=== PATIENT | female | born 1965 | race Caucasian/White ===

== ENCOUNTER 2020-02-20 14:42 | Observation (INO) | payer OTHER, SELFPAY ==
[2020-02-20] VITALS (7 sets, daily range): BP systolic 102–146; BP diastolic 56–93; PULSE 88–115; RESP 16–18; TEMP 36.8–37.1; O2SAT 96–100; BMI 33.7
--- NOTE | ~2020-02-20 | CT_ITS ---
EXAMINATION: CT abdomen pelvis w con EXAM DATE: 02/20/2020 15:59 INDICATION: Medial abdominal pain last night, vomiting and diarrhea. TECHNIQUE: Spiral CT of the abdomen and pelvis was performed following intravenous injection of 100 m L Omnipaque 350. Axial, coronal and sagittal images were reviewed. The dose-length product (DLP) fo r this examination was 853.94 mGy-cm. The exposure was tailored according to patient size (auto mA e xposure control), and iterative reconstruction (ASIR) was used as additional dose reduction technique . Comparison is made to prior examination from 01/10/2016. FINDINGS: The liver, spleen, adrenal glands and pancreas are unremarkable. There are cholecystectomy clips. Portal and splenic veins are patent. Kidneys enhance symmetrically. There is no hydronephr osis. The bladder is unremarkable. There is no retroperitoneal or pelvic lymphadenopathy. Appendix measuring 8 mm in maximal diameter, is contiguous to the right ovary which is normal in size . There is no appendicolith, and appendix does not appear fluid-filled, but there is fat stranding ad jacent to its tip, and also both ovaries, which is nonspecific. Inflammation could be from a recently ruptured cyst, but can't exclude acute appendicitis. Patient has had hysterectomy. There is a left o varian dominant follicle or hemorrhagic cyst measuring 3 cm. The stomach and small bowel are unremar kable. There is expected amount of colonic stool. No free intraperitoneal gas. The heart is norm al in size. There are no pericardial or pleural effusions. The lung bases are unremarkable. scler osis in L1 and L2 probably related to the advanced disc disease at that level. IMPRESSION: Appendix contiguous to the right ovary, with some adjacent nonspecific fat stranding and also adjacent to the left ovary. Inflammation could be from a recently ruptured cyst, but can't exclu de acute uncomplicated appendicitis. Reviewed, dictated and finalized at location A. IMPRESSION: Appendix contiguous to the right ovary, with some adjacent nonspeci fic fat stranding and also adjacent to the left ovary. Inflammation could be fr om a recently ruptured cyst, but can't exclude acute uncomplicated appendicitis .
--- NOTE | 2020-02-20 15:02 | ED.ABDPAIN ---
HPI - Abdominal Pain General Chief Complaint: Abdominal Pain Stated Complaint: vomiting/diarrhea/abd pain Time Seen by Provider: 02/20/20 14:50 Source: patient and RN notes reviewed Mode of arrival: ambulatory Limitations: no limitations History of Present Illness HPI narrative: Pt is a 54 y/o female who presents to the ED with c/o constant epigastric pain starting last night. She notes that she ate pizza around 7 PM yesterday evening, and states that she developed nausea and a sharp pain in her epigastric region shortly afterwards. Pt notes that she then began vomiting. She states that she has also had several episodes of diarrhea, noting that her stools have been mostly watery. Pt states that her pain is aggravated with movement, and currently rates her pain at 8/10. She notes that she took Tylenol for her pain, and states that the medication has provided her some relief. Pt reports chills accompanying her pain, but denies any fever. She notes that she has been in contact with her son who has recently travelled to [place] and [place]. Pt states that her son is currently asymptomatic. MD elicited complaint: abdominal pain Onset (ago): day(s) (1) Pain Consistency: constant Location: epigastric Pain scale (0-10): 8 Quality: sharp Exacerbating factors: movement Relieving factors: medication (Tylenol) Associated symptoms: nausea, vomiting, diarrhea and chills Related Data Home Medications Medication Instructions Recorded Confirmed lisinopril 02/20/20 ranitidine HCl 02/20/20 Allergies Allergy/AdvReac Type Severity Reaction Status Date / Time amoxicillin Allergy Unknown Unknown Verified 02/20/20 14:54 chlorpheniramine Allergy Unknown Unknown Verified 02/20/20 14:54 pseudoephedrine Allergy Unknown Unknown Verified 02/20/20 14:54 Review of Systems Review of Systems: All systems reviewed & are unremarkable except as noted in HPI and below Constitutional: Constitutional: Reports chills and Denies fever(s) Gastrointestinal: Gastrointestinal: Reports abdominal pain (epigastric pain), Reports diarrhea, Reports nausea and Reports vomiting PMFSH Past Medical History Medical History Hiatal hernia HTN (hypertension) Surgical History Surgical History History of hysterectomy History of open heart surgery as child Hx of cholecystectomy Family History Family History (Updated 06/20/16 @ 23:21 by DOCTOR UNKNOWN) Mother Hypertension Family history of diabetes mellitus in first degree relative Father Patient's father is in good health Sibling Patient's sister is in good health Patient's brother is in good health Social History Social History Smoking status: Former smoker Alcohol intake: current Gender identity (if verbalized by the patient): Female Exam Narrative: Exam Narrative: General appearance: Well-developed, well-nourished Skin: Normal color Head: Normocephalic, nontraumatic Eyes: Clear conjunctiva ENT: Oropharynx normal, ears normal, nose normal Neck: Supple, nontender Chest and respiratory: Airway patent, no respiratory distress, no accessory muscle use Heart: Regular rate/rhythm Abdomen: Soft and diffuse tenderness mainly right lower quadrant, no guarding or rebound, quiet bowel sounds Vascular: Normal peripheral pulses, normal capillary refill. Musculoskeletal: Normal range of motion, nontender back Neurologic: Alert and oriented ?3, ROUTE JUMPER is normal as tested, no gross motor deficit Course Course Emergency Course: Improving Consultations Consultation #1: Discussed case with general surgeon, Dr. Barriga. Accep
[2020-02-20 15:03] LABS: Basophils Percent Auto 0.2 % (0.2-1.2); Hematocrit 42.7 % (37.0-47.0); Hemoglobin 14.1 g/dL (12.0-15.0); Immature Granulocyte Percent A 0.5 % (0-0.5); Lymphocytes Absolute Auto 2.13 K/mm3 (0.9-3.2); Mean Corpuscular Hemoglobin 31.2 pg (26-34); Mean Corpuscular Volume 94.5 fl (80-100); Mean Platelet Volume 10.7 fl (7.4-10.4); Monocytes Absolute Auto 0.7 K/mm3 (0.1-0.6); Monocytes Percent Auto 3.5 % (2.6-8.5); Neutrophils Absolute Auto 16.4 K/mm3 (1.3-6.7); Neutrophils Percent Auto 84.8 % (45.5-73.1); Platelet Count Result 245 k/mm3 (150-375); Red Blood Count 4.52 M/mm3 (4.2-5.4); Red Cell Distribution Width 12.5 % (11.5-14.5); White Blood Count 19.4 K/mm3 (4.5-10.0)
[2020-02-20 15:21] LABS: Alanine Aminotransferase 21 U/L (4-35); Albumin Level 4.6 g/dL (3.5-5.1); Alkaline Phosphatase 59 U/L (38-126); Aspartate Amino Transferase 26 U/L (14-36); Bilirubin,Total 2.8 mg/dL (0.2-1.3); Blood Urea Nitrogen 8 mg/dL (7-17); Calcium 9.5 mg/dL (8.4-10.2); Carbon Dioxide 23 mmol/L (22-30); Chloride 103 mmol/L (98-107); Estimated CRCL calculation 87 ml/min; Estimated Glomerular Filt Rate > 60; Glucose 127 mg/dL (65-105); Lipase 36 U/L (23-300); Potassium 3.8 mmol/L (3.4-5.0); Sodium 134 mmol/L (137-145)
[2020-02-20] MEDS: ONDANSETRON INJ 4 MG/2 ML VIAL IV PUSH ×2 (16:09→20:53)
[2020-02-20] MEDS: HYDROMORPHONE HCL 1 MG/ML INJ 0.5 MG IV PUSH (16:09)
[2020-02-20] MEDS: SODIUM CHLORIDE 0.9% IV 1,000 ML 999 ML IV CONT (16:10)
[2020-02-20] MEDS: metroNIDAZOLE 500 MG/ISO 100ML 500 MG/100 ML BAG 100 MG IVPB (16:50)
[2020-02-20] MEDS: LACTATED RINGERS 1,000 ML 125 ML IV CONT (20:12)
[2020-02-20 20:32] LABS: Basophils Percent Auto 0.2 % (0.2-1.2); Hematocrit 36.7 % (37.0-47.0); Hemoglobin 11.9 g/dL (12.0-15.0); Immature Granulocyte Absolute 0.05 K/mm3 (0.00-0.031); Immature Granulocyte Percent A 0.4 % (0-0.5); Lymphocytes Absolute Auto 1.73 K/mm3 (0.9-3.2); Lymphocytes Percent Auto 12.9 % (18.3-44.2); Mean Corpuscular HGB Conc 32.4 g/dl (32-36); Mean Corpuscular Hemoglobin 31.2 pg (26-34); Mean Corpuscular Volume 96.1 fl (80-100); Mean Platelet Volume 10.8 fl (7.4-10.4); Monocytes Absolute Auto 0.5 K/mm3 (0.1-0.6); Monocytes Percent Auto 3.6 % (2.6-8.5); Neutrophils Absolute Auto 11.1 K/mm3 (1.3-6.7); Neutrophils Percent Auto 82.9 % (45.5-73.1); Platelet Count Result 222 k/mm3 (150-375); Red Blood Count 3.82 M/mm3 (4.2-5.4); Red Cell Distribution Width 12.8 % (11.5-14.5); White Blood Count 13.4 K/mm3 (4.5-10.0)
[2020-02-20] MEDS: KETOROLAC 15 MG/ML VIAL (*BKC) IV PUSH (20:51)
--- NOTE | 2020-02-20 21:00 | ADMGEN ---
This patient, Archana Pérez, was admitted to [facility] Surg Room 315-01. Patient/family oriented to hospital policies and general routines including ID bracelet, bed and alarms, visiting hours, pain management, procedures, bathroom and other care routines, personal items, smoking policy, room service/diet, and visiting hours. Valuables list has been completed. Information on how to activate the Rapid Response Team has been discussed. Patient/Family are encouraged to report perceived risks to care and to ask questions if they do not understand what they are told or what they should do.
--- NOTE | 2020-02-20 22:36 | PM.IMHP ---
H&P: HPI History of Present Illness Chief complaint: Uncomplicated appendicitis/ruptured ovarian cyst Narrative: Archana Pérez is a 54 year old female who has had a past history of having ovarian cyst. She has since had a hysterectomy and has both of her ovaries at this time. The patient stated that she ate some pizza last night became ill. She had diffuse abdominal pain and nausea vomiting. The patient stated that her bowels have not moved because she has not eaten anything since then. And she has been vomiting. The patient did not have a fever chills. She has not had any sick contacts. She has not traveled out of the country. 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 She has no cough. CT of the abdomen was read as appendix contiguous to the right ovary, with some adjacent nonspecific fat stranding and also adjacent to the left ovary. Inflammation could be from recently ruptured cysts, but cannot exclude acute uncomplicated appendicitis. Dr. Barriga from surgery team was notified per ED provider and surgery team agreed to consult but requested that the hospitalist team admit the patient. I also requested a OBGYN be notified. ED provider noted that he did consult OBGYN. Patient was started on Flagyl and Levaquin as and given Dilaudid for discomfort. She was made NPO and given IV fluids. Date of service 02/20/2020 Review of Systems Review of Systems: All systems reviewed & are unremarkable except as noted in HPI and below Constitutional: Constitutional: Reports as per HPI and Reports no additional constitutional complaints Eyes: Eyes: Reports as per HPI and Reports no additional eye complaints ENT: Reports system reviewed and no additional complaints, except as documented and Reports Normal hearing present Cardiovascular: Cardiovascular: Reports no additional cardiovascular complaints Respiratory: Respiratory: Reports no additional respiratory complaints and Reports no additional respiratory complaints Gastrointestinal: Gastrointestinal: Reports as per HPI and Reports no additional gastrointestinal complaints Musculoskeletal: Musculoskeletal: Reports no additional musculoskeletal complaints Integumentary/Breasts: Skin/Breast: Reports system reviewed and no additional complaints, except as docu and Reports as per HPI Neurologic: Reports system reviewed and no additional complaints, except as documented, Reports as per HPI and Reports Normal hearing present Psychiatric: Psychiatric: Reports no additional psychiatric complaints and Reports as per HPI Endocrine: Endocrine: Reports no additional endocrine complaints Hematologic/Lymphatic: Hematologic/Lymphatic: Reports no additional hematologic/lymphatic complaints Allergic/Immunologic: Allergic/Immunologic: Reports no additional allergic/immunologic complaints [facility] Past Medical History Medical History (Updated 02/20/20 @ 22:54 by Connie Kate NP) Chronic GERD Hiatal hernia HTN (hypertension) Surgical History Surgical History (Updated 02/20/20 @ 22:46 by Connie Kate NP) H/O sinus surgery History of hysterectomy History of open heart surgery as child History of tonsillectomy Hx of cholecystectomy Family History Family History (Updated 02/20/20 @ 22:47 by Connie Kate NP) Mother Hypertension Family history of diabetes mellitus in first degree relative Father Patient's father is in good health Patient had seen her father and several years the last time she saw him he was in good health. Sibling Patient's sister is in good health Patient's brother is in good health Social History Social History (Updated 02/20/20 @ 22:48 by Connie Kate NP) Social History: The patient is and has 2 children. She is a hairdresser. She desires to have her oldest son likes she also works doing [employer] with [employer] and does here at the [facility] Smoking packs per day: 1 Smoki
[2020-02-21] MEDS: metroNIDAZOLE 500 MG/ISO 100ML 500 MG/100 ML BAG 100 MG IVPB ×4 (00:07→21:28)
[2020-02-21 02:00] VITALS: BP 99/60; PULSE 86; RESP 18; TEMP 36.8; O2SAT 97
[2020-02-21] MEDS: LACTATED RINGERS 1,000 ML 125 ML IV CONT ×2 (05:20→14:06)
[2020-02-21 05:58] LABS: Basophils Percent Auto 0.2 % (0.2-1.2); Eosinophils Percent Auto 0.1 % (0-4.4); Hematocrit 32.7 % (37.0-47.0); Immature Granulocyte Absolute 0.05 K/mm3 (0.00-0.031); Immature Granulocyte Percent A 0.5 % (0-0.5); Lymphocytes Absolute Auto 1.48 K/mm3 (0.9-3.2); Lymphocytes Percent Auto 16.1 % (18.3-44.2); Mean Corpuscular HGB Conc 33.6 g/dl (32-36); Mean Corpuscular Hemoglobin 31.7 pg (26-34); Mean Corpuscular Volume 94.2 fl (80-100); Mean Platelet Volume 10.3 fl (7.4-10.4); Monocytes Absolute Auto 0.3 K/mm3 (0.1-0.6); Monocytes Percent Auto 3.3 % (2.6-8.5); Neutrophils Absolute Auto 7.4 K/mm3 (1.3-6.7); Neutrophils Percent Auto 79.8 % (45.5-73.1); Platelet Count Result 165 k/mm3 (150-375); Red Blood Count 3.47 M/mm3 (4.2-5.4); Red Cell Distribution Width 12.9 % (11.5-14.5); White Blood Count 9.2 K/mm3 (4.5-10.0)
[2020-02-21 06:00] VITALS: BP 101/63; PULSE 95; RESP 18; TEMP 37.9; O2SAT 95
[2020-02-21 06:18] LABS: Alanine Aminotransferase 17 U/L (4-35); Albumin Level 3.2 g/dL (3.5-5.1); Alkaline Phosphatase 51 U/L (38-126); Aspartate Amino Transferase 18 U/L (14-36); Blood Urea Nitrogen 8 mg/dL (7-17); Calcium 8.4 mg/dL (8.4-10.2); Carbon Dioxide 25 mmol/L (22-30); Chloride 105 mmol/L (98-107); Estimated CRCL calculation 77 ml/min; Estimated Glomerular Filt Rate > 60; Glucose 101 mg/dL (65-105); Potassium 3.7 mmol/L (3.4-5.0); Sodium 137 mmol/L (137-145)
[2020-02-21] MEDS: PANTOPRAZOLE SODIUM IV 40 MG VIAL IV PUSH ×2 (08:33→21:25)
--- NOTE | 2020-02-21 09:49 | PM.CNGS ---
Assessment and Plan Assessment and plan (1) Acute appendicitis: Onset Date: ~02/20/20 Qualifiers: Acute appendicitis type: unspecified acute appendicitis type Qualified Code(s): K35.80 - Unspecified acute appendicitis Code(s): K35.80 - Unspecified acute appendicitis Status: Acute Assessment and Plan: Patient improved on IV antibiotics. There are no fecaliths. Therefore, I have discussed with her the risks, benefits, and possible complications of treatment of possible but equivocal appendicitis with IV antibiotics followed by a 10 day course of oral antibiotics. At this time we are not planning surgical intervention. She knows that about 20% of people that embark on this plan occasionally need appendectomy. I think she is a low chance for this in view of the mild inflammation that was seen on the CT yesterday. We will start a diet on her since she is hungry will also send some stool studies since she has been having loose stools that are almost uncontrollable ever since she ate the pizza 2 nights ago. (2) HTN (hypertension): Onset Date: Unknown Code(s): I10 - Essential (primary) hypertension Status: Chronic Assessment and Plan: Appreciate hospitalist help patient could start oral lisinopril back again now. (3) Chronic GERD: Onset Date: Unknown Code(s): K21.9 - Gastro-esophageal reflux disease without esophagitis Status: Chronic Assessment and Plan: Continue IV transition to p.o. medications to resume her usual treatment (4) Ovarian cyst rupture: Onset Date: Unknown Code(s): N83.209 - Unspecified ovarian cyst, unspecified side Status: Acute Assessment and Plan: Lower abdominal pain could have been a result of a cyst that ruptured. Please see CT report. Will await OB Gyne evaluation. If this is the case probably her pain will gradually resolve. If it comes to a position where surgery will be needed from either the OB Gyne or general surgery aspect we will try to coordinate such that we could evaluate both the appendix and her ovaries during surgery. Additional Plan Continue Levaquin and Flagyl for antibiotic therapy. Repeat CBC liver function tests tomorrow morning (bilirubin was high for some reason). If doing well consider home tomorrow to complete a 10 day course of antibiotics and I will follow her up as an outpatient. History of Present Illness Consult details Consult date: 02/21/20 Reason for consult: abdominal pain Requesting physician: Connie Kate NP Narrative: Archana Pérez is a 54 year old female who has had a past history of having ovarian cysts on and off with Lt lower quadrant pain. She has had a vaginal hysterectomy about 18 ears ago, and still has both of her ovaries at this time. The patient stated that she ate some pizza Sun night and then became ill. She had diffuse abdominal pain and nausea vomiting. The patient stated that her bowels have not moved because she has not eaten anything since then. And she has been vomiting. The patient did not have a fever or chills. She has not had any sick contacts. The particular pizza that she ate only she aided no one else. She has not traveled out of the country. 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 She has no cough. CT of the abdomen was read as appendix contiguous to the right ovary, with some adjacent nonspecific fat stranding and also adjacent to the left ovary. Inflammation could be from recently ruptured cysts, but cannot exclude acute uncomplicated appendicitis. The surgery team was notified per ED provider and we agreed to consult but requested that the hospitalist team admit the patient due to her HTN. Today the patient feels somewhat better. Today her abdominal pain is mostly lower abdominal pain. Her nausea and vomiting have resolved. She does feel hungry. Review of Systems Constitutional: Dayo
[2020-02-21 14:00] VITALS: BP 103/61; PULSE 101; RESP 16; TEMP 36.7; O2SAT 95
[2020-02-21] MEDS: KETOROLAC 15 MG/ML VIAL (*BKC) IV PUSH ×3 (14:06→23:38)
--- NOTE | 2020-02-21 15:07 | PM.IMPN ---
Progress Note: A&P Assessment and Plan (1) Acute appendicitis: Onset Date: ~02/20/20 Qualifiers: Acute appendicitis type: unspecified acute appendicitis type Qualified Code(s): K35.80 - Unspecified acute appendicitis Code(s): K35.80 - Unspecified acute appendicitis Status: Acute Assessment and Plan: Patient is made NPO at this time. Patient was placed on Flagyl and Levaquin. Surgery has been consulted. Continue with IV fluids pain medication 02/21/20 15:07 patient is a 54-year-old female with history of ovarian cyst rupture in the past presented emergency department with complaint of epigastric pain nausea feverish and chills, patient had a CT scan of the abdomen there was a concerned that patient may have appendicitis as her white counts were elevated, patient was started on Flagyl and Levaquin, this morning patient states pain is much better denies any nausea or vomiting fever or chills her white counts are trending down, patient was seen by surgery team does not suspect appendicitis and started the patient on clear liquid and advanced as tolerated, will continue to monitor with same regimen reassess tomorrow and further recommendation to follow (2) Ovarian cyst rupture: Onset Date: Unknown Code(s): N83.209 - Unspecified ovarian cyst, unspecified side Status: Acute Assessment and Plan: I did order the patient Toradol and Dilaudid. Patient has abdominal tenderness all over. (3) Chronic GERD: Onset Date: Unknown Code(s): K21.9 - Gastro-esophageal reflux disease without esophagitis Status: Chronic Assessment and Plan: Continue with the PPI. (4) HTN (hypertension): Onset Date: Unknown Code(s): I10 - Essential (primary) hypertension Status: Chronic Assessment and Plan: Patient is NPO at this time will do p.r.n. hydralazine. Her lisinopril is on hold. Subjective Date/time seen: Patient is made NPO at this time. Patient was placed on Flagyl and Levaquin. Surgery has been consulted. Continue with IV fluids pain medication 02/21/20 15:07 patient is a 54-year-old female with history of ovarian cyst rupture in the past presented emergency department with complaint of epigastric pain nausea feverish and chills, patient had a CT scan of the abdomen there was a concerned that patient may have appendicitis as her white counts were elevated, patient was started on Flagyl and Levaquin, this morning patient states pain is much better denies any nausea or vomiting fever or chills her white counts are trending down, patient was seen by surgery team does not suspect appendicitis and started the patient on clear liquid and advanced as tolerated, will continue to monitor with same regimen reassess tomorrow and further recommendation to follow Review of Systems Review of Systems: All systems reviewed & are unremarkable except as noted in HPI and below Exam Narrative: Exam Narrative: Moderately obese Const: General: comfortable and no acute distress HENMT: General nose exam: Normal nares present Mouth: Yes moist mucous membranes Eyes: General: appearance normal, both eyes and all related structures Sclera: sclerae normal Neck: Neck: supple Resp: Effort & Inspection: normal respiratory effort Auscultation: clear to auscultation bilaterally Cardio: Rate: regular rate Rhythm: regular rhythm GI: Auscultation: normal bowel sounds Skin: General skin exam: normal color and no rashes or lesions noted Neuro: Speech: normal speech Sensory Exam: normal sensation Extrem: General: normal to inspection Psych: Mental Status: mental status grossly normal Affect: normal affect Objective Data Vital Signs Vital Signs: Vital Signs - 24 hr 02/20/20 16:50 02/20/20 18:13 02/20/20 18:57 Temperature 98.2 F Pulse Rate 100 88 92 Respiratory Rate 18 16 18 Blood Pressure 142/74 H 142/78 H 106/67 Pulse Oximetry 100 97 97
[2020-02-21] MEDS: levoFLOXacin 500 MG/D5W 100 ML 500 MG/100 ML BAG 100 MG IVPB (18:36)
[2020-02-21 22:00] VITALS: BP 114/67; PULSE 86; RESP 18; TEMP 36.6; O2SAT 98
[2020-02-22] MEDS: LACTATED RINGERS 1,000 ML 125 ML IV CONT ×2 (01:22→11:29)
[2020-02-22] MEDS: KETOROLAC 15 MG/ML VIAL (*BKC) IV PUSH ×3 (05:57→17:25)
[2020-02-22] MEDS: metroNIDAZOLE 500 MG/ISO 100ML 500 MG/100 ML BAG 100 MG IVPB ×3 (05:57→21:57)
[2020-02-22 06:00] VITALS: BP 123/66; PULSE 95; RESP 18; TEMP 36.8; O2SAT 96
[2020-02-22 06:15] LABS: Hematocrit 33.2 % (37.0-47.0); Hemoglobin 10.4 g/dL (12.0-15.0); Mean Corpuscular HGB Conc 31.3 g/dl (32-36); Mean Corpuscular Volume 98.8 fl (80-100); Mean Platelet Volume 11.6 fl (7.4-10.4); Platelet Count Result 155 k/mm3 (150-375); Red Blood Count 3.36 M/mm3 (4.2-5.4); Red Cell Distribution Width 12.9 % (11.5-14.5); White Blood Count 7.8 K/mm3 (4.5-10.0)
[2020-02-22 07:23] LABS: Alanine Aminotransferase 17 U/L (4-35); Albumin Level 3.2 g/dL (3.5-5.1); Alkaline Phosphatase 64 U/L (38-126); Aspartate Amino Transferase 19 U/L (14-36); Bilirubin,Total 1.8 mg/dL (0.2-1.3); Blood Urea Nitrogen 7 mg/dL (7-17); Calcium 8.5 mg/dL (8.4-10.2); Carbon Dioxide 26 mmol/L (22-30); Chloride 107 mmol/L (98-107); Estimated CRCL calculation 77 ml/min; Estimated Glomerular Filt Rate > 60; Glucose 121 mg/dL (65-105); Potassium 3.8 mmol/L (3.4-5.0); Sodium 136 mmol/L (137-145)
--- NOTE | 2020-02-22 07:43 | PM.PNGS ---
Progress Note: A&P Assessment and Plan (1) Ovarian cyst rupture: Onset Date: Unknown Code(s): N83.209 - Unspecified ovarian cyst, unspecified side Status: Acute Assessment and Plan: View of decreasing H&H I suspect a ruptured hemorrhagic cyst more than appendicitis. Also, white count has con down stay down with antibiotics. Will repeat H&H in 12 hours to see if this continues to go down or stabilizes. (2) Acute appendicitis: Onset Date: ~02/20/20 Qualifiers: Acute appendicitis type: unspecified acute appendicitis type Qualified Code(s): K35.80 - Unspecified acute appendicitis Code(s): K35.80 - Unspecified acute appendicitis Status: Acute Assessment and Plan: Doubt appendicitis since patient's temperature has been normal and pain is not localized to the right lower quadrant. Also patient is having loose stools and hyperactive bowel sounds rather than more an ileus which would typically be more likely with appendicitis. (3) HTN (hypertension): Onset Date: Unknown Code(s): I10 - Essential (primary) hypertension Status: Chronic Assessment and Plan: As per medical service treatment May be able to resume oral medications today (4) Chronic GERD: Onset Date: Unknown Code(s): K21.9 - Gastro-esophageal reflux disease without esophagitis Status: Chronic Assessment and Plan: Not really bothering her while taking the IV Protonix. Additional Plan Will have patient try to take further liquids If H&H drops further consider repeat CT scan of the abdomen and pelvis to check for pelvic accumulation of fluid versus worsening appendicitis or changes in the ovarian cysts. Time Spent With Patient Time with patient: 15 - 25 minutes Subjective Subjective Date/Time Seen: 02/22/20 07:43 Patient lying in bed when I entered the room. States that her pain is better today than yesterday but she still having lower and mid abdominal pain. She is not having nausea. She is having multiple loose stools which are sometimes not controllable. Stool studies still pending. Nurse reports Toradol seems to be helping the patient's pain she is not taking the morphine that is ordered. Patient did tolerate some liquids yesterday but a fairly minimal amount. Does not localize pain to the right side more than to the left. Review of Systems Constitutional: Constitutional: Reports no additional constitutional complaints ENT: Reports other (Mucous Membranes moist.) Cardiovascular: Cardiovascular: Denies dyspnea Respiratory: Respiratory: Denies pain on inspiration and Denies dyspnea Gastrointestinal: Gastrointestinal: Reports as per HPI, Reports no additional gastrointestinal complaints and Reports diarrhea Musculoskeletal: Musculoskeletal: Reports other (No calf swelling or edema) Integumentary/Breasts: Skin/Breast: Reports system reviewed and no additional complaints, except as docu Exam Const: General: cooperative, no acute distress, alert and awake Orientation/consciousness: patient oriented x3 HENMT: Mouth: Yes moist mucous membranes Neck: Neck: normal visual inspection Chest: Chest palpation & inspection: normal inspection of the chest Resp: Effort & Inspection: normal respiratory effort Auscultation: clear to auscultation bilaterally Cardio: Jugular venous distension: no JVD Rate: regular rate Rhythm: regular rhythm GI: GI Palp: Yes abdominal tenderness (Mild lower abdominal), No Hernia present and No Palpable mass present Auscultation: Hyperactive bowel sounds present Rectal Exam: deferred Neuro: General: patient oriented x3 and moves all extremities Speech: normal speech Extrem: General: normal exam except as noted Psych: Mental Status: mental status grossly normal Speech and movement: Normal speech and movement present Affect: normal affect Thought content: Yes Normal thought content present Objective Data Vital Signs V
[2020-02-22] MEDS: PANTOPRAZOLE SODIUM IV 40 MG VIAL IV PUSH ×2 (07:59→21:57)
[2020-02-22 14:00] VITALS: BP 115/76; PULSE 90; RESP 18; TEMP 37.1; O2SAT 97
--- NOTE | 2020-02-22 14:59 | PM.IMPN ---
Progress Note: A&P Assessment and Plan (1) Acute appendicitis: Onset Date: ~02/20/20 Qualifiers: Acute appendicitis type: unspecified acute appendicitis type Qualified Code(s): K35.80 - Unspecified acute appendicitis Code(s): K35.80 - Unspecified acute appendicitis Status: Acute Assessment and Plan: 02/22/20 14:59 Patient is made NPO at this time. Patient was placed on Flagyl and Levaquin. Surgery has been consulted. Continue with IV fluids pain medication 02/21/20 15:07 patient is a 54-year-old female with history of ovarian cyst rupture in the past presented emergency department with complaint of epigastric pain nausea feverish and chills, patient had a CT scan of the abdomen there was a concerned that patient may have appendicitis as her white counts were elevated, patient was started on Flagyl and Levaquin, this morning patient states pain is much better denies any nausea or vomiting fever or chills her white counts are trending down, patient was seen by surgery team does not suspect appendicitis and started the patient on clear liquid and advanced as tolerated, patient states that her symptoms started after she ate Pizza night before arriving with c/o abdominal pain, nausea and vomiting, patient states nausea and diarrhea still persisting, most likely patient has a gastroenteritis, will continue to monitor with same regimen reassess tomorrow and further recommendation to follow (2) Ovarian cyst rupture: Onset Date: Unknown Code(s): N83.209 - Unspecified ovarian cyst, unspecified side Status: Acute Assessment and Plan: I did order the patient Toradol and Dilaudid. Patient has abdominal tenderness all over. (3) Chronic GERD: Onset Date: Unknown Code(s): K21.9 - Gastro-esophageal reflux disease without esophagitis Status: Chronic Assessment and Plan: Continue with the PPI. (4) HTN (hypertension): Onset Date: Unknown Code(s): I10 - Essential (primary) hypertension Status: Chronic Assessment and Plan: Patient is NPO at this time will do p.r.n. hydralazine. Her lisinopril is on hold. Subjective Date/time seen: 02/22/20 14:59 Patient is made NPO at this time. Patient was placed on Flagyl and Levaquin. Surgery has been consulted. Continue with IV fluids pain medication 02/21/20 15:07 patient is a 54-year-old female with history of ovarian cyst rupture in the past presented emergency department with complaint of epigastric pain nausea feverish and chills, patient had a CT scan of the abdomen there was a concerned that patient may have appendicitis as her white counts were elevated, patient was started on Flagyl and Levaquin, this morning patient states pain is much better denies any nausea or vomiting fever or chills her white counts are trending down, patient was seen by surgery team does not suspect appendicitis and started the patient on clear liquid and advanced as tolerated, patient states that her symptoms started after she ate Pizza night before arriving with c/o abdominal pain, nausea and vomiting, patient states nausea and diarrhea still persisting, will continue to monitor with same regimen reassess tomorrow and further recommendation to follow Review of Systems Review of Systems: All systems reviewed & are unremarkable except as noted in HPI and below Exam Narrative: Exam Narrative: Moderately obese Const: General: no acute distress and uncomfortable HENMT: General nose exam: Normal nares present Mouth: Yes moist mucous membranes Eyes: General: appearance normal, both eyes and all related structures Sclera: sclerae normal Neck: Neck: supple Resp: Effort & Inspection: normal respiratory effort Auscultation: clear to auscultation bilaterally Cardio: Rate: regular rate Rhythm: regular rhythm GI: Auscultation: normal bowel sounds Other: Diffusely tender Skin: General skin exam: normal color Ne
[2020-02-22 16:11] LABS: Hematocrit 34.3 % (37.0-47.0)
[2020-02-22] MEDS: levoFLOXacin 500 MG/D5W 100 ML 500 MG/100 ML BAG 100 MG IVPB (17:24)
[2020-02-22 22:00] VITALS: BP 129/83; PULSE 85; RESP 16; TEMP 36.9; O2SAT 99
[2020-02-23] MEDS: KETOROLAC 15 MG/ML VIAL (*BKC) IV PUSH ×3 (00:14→12:50)
[2020-02-23] MEDS: LACTATED RINGERS 1,000 ML 125 ML IV CONT ×2 (00:16→08:24)
[2020-02-23] MEDS: metroNIDAZOLE 500 MG/ISO 100ML 500 MG/100 ML BAG 100 MG IVPB (05:44)
[2020-02-23 05:58] VITALS: BP 127/76; PULSE 79; RESP 18; TEMP 37.3; O2SAT 97
[2020-02-23 06:08] LABS: Hematocrit 30.5 % (37.0-47.0); Hemoglobin 9.6 g/dL (12.0-15.0); Mean Corpuscular HGB Conc 31.5 g/dl (32-36); Mean Corpuscular Hemoglobin 30.9 pg (26-34); Mean Corpuscular Volume 98.1 fl (80-100); Mean Platelet Volume 11.1 fl (7.4-10.4); Platelet Count Result 161 k/mm3 (150-375); Red Blood Count 3.11 M/mm3 (4.2-5.4); Red Cell Distribution Width 12.9 % (11.5-14.5); White Blood Count 6.4 K/mm3 (4.5-10.0)
[2020-02-23 06:16] LABS: Alanine Aminotransferase 17 U/L (4-35); Albumin Level 3.1 g/dL (3.5-5.1); Alkaline Phosphatase 82 U/L (38-126); Aspartate Amino Transferase 21 U/L (14-36); Blood Urea Nitrogen 6 mg/dL (7-17); Calcium 8.1 mg/dL (8.4-10.2); Carbon Dioxide 26 mmol/L (22-30); Chloride 105 mmol/L (98-107); Estimated CRCL calculation 88 ml/min; Estimated Glomerular Filt Rate > 60; Glucose 101 mg/dL (65-105); Potassium 3.5 mmol/L (3.4-5.0); Sodium 137 mmol/L (137-145)
[2020-02-23 08:00] VITALS: PULSE 79; RESP 18; O2SAT 97
[2020-02-23] MEDS: POTASSIUM CHLORIDE 20 MEQ TABLET 40 MEQ PO (08:26)
[2020-02-23] MEDS: PANTOPRAZOLE SODIUM IV 40 MG VIAL IV PUSH (08:27)
--- NOTE | 2020-02-23 09:19 | PM.PNGS ---
Progress Note: A&P Assessment and Plan (1) Acute appendicitis: Onset Date: ~02/20/20 Qualifiers: Acute appendicitis type: unspecified acute appendicitis type Qualified Code(s): K35.80 - Unspecified acute appendicitis Code(s): K35.80 - Unspecified acute appendicitis Status: Acute Assessment and Plan: Doubt appendicitis since patient's temperature has been normal and pain is not localized to the right lower quadrant. Also patient is having loose stools and hyperactive bowel sounds rather than more an ileus which would typically be more likely with appendicitis. (2) HTN (hypertension): Onset Date: Unknown Code(s): I10 - Essential (primary) hypertension Status: Chronic Assessment and Plan: As per medical service treatment May be able to resume oral medications today (3) Chronic GERD: Onset Date: Unknown Code(s): K21.9 - Gastro-esophageal reflux disease without esophagitis Status: Chronic Assessment and Plan: Not really bothering her while taking the IV Protonix. (4) Ovarian cyst rupture: Onset Date: Unknown Code(s): N83.209 - Unspecified ovarian cyst, unspecified side Status: Acute Assessment and Plan: Feel like this is the more likely option of what happen. She may have had some bleeding from a rupture of left ovarian cyst. This irritated the inside of the abdomen and gave her the lower abdominal pain and nausea and vomiting. She could also have a gastroenteritis since she continues to have diarrhea. Stool studies however, so far have been negative. She now remembers that she did have a routine visit last year x1 with [facility]. She can't remember the physician's name, but will look up at home try to get a routine outpatient visit sometime in the next 1-2 months to follow-up on her ovarian cysts. Additional Plan Will have patient try to take further liquids and advance to a soft diet for lunch H&H has been up and down over the last 24 hours so most likely is lab variability. Discussed her situation with Dr. Hermosillo from the hospitalist service. If patient tolerating soft diet at lunch and continuing to tolerate the abdominal pain without much pain medication could send her home today on 7 more days of Levaquin and Flagyl. I could follow our up somewhere around 10-14 days just after she finishes her antibiotics to be sure everything is going well. She would of half course have to be afebrile to come to the office. Otherwise, we could to a virtual visit. Subjective Subjective Date/Time Seen: 02/23/20 09:19 Patient is sitting up in the chair trying a full liquid breakfast when I entered the room. Patient has been walking in the [place]. Still having very loose stools that sometimes are difficult to control. Suggested trying Metamucil to help solidify stools. Still occasional abdominal cramping but pain not as bad as when she entered the hospital. No nausea or vomiting. Review of Systems Constitutional: Constitutional: Reports as per HPI, Reports no additional constitutional complaints and Denies headache(s) Eyes: Eyes: Denies loss of vision and Denies eye pain ENT: Reports Normal hearing present, Denies change in voice, Denies dizziness, Denies headache(s) and Reports other (Mucous Membranes moist.) Cardiovascular: Cardiovascular: Denies chest pain and Denies dyspnea Respiratory: Respiratory: Denies pain on inspiration, Denies dyspnea and Denies wheezing Gastrointestinal: Gastrointestinal: Reports as per HPI, Reports no additional gastrointestinal complaints, Reports abdominal pain and Reports diarrhea Musculoskeletal: Musculoskeletal: Denies back pain, Denies arthralgias and Reports other (No calf swelling or edema) Integumentary/Breasts: Skin/Breast: Reports system reviewed and no additional complaints, except as docu Neurologic: Reports Normal hearing present, Denies dizziness, Denies headache(s), Denies l
--- NOTE | 2020-02-23 09:43 | PM.DS ---
DS: Diagnosis Admitting Diagnosis Admitting Diagnosis: Unspecified acute appendicitis Discharge Diagnosis (1) Acute appendicitis: Onset Date: ~02/20/20 Qualifiers: Acute appendicitis type: unspecified acute appendicitis type Qualified Code(s): K35.80 - Unspecified acute appendicitis Code(s): K35.80 - Unspecified acute appendicitis Status: Acute Assessment and Plan: 02/22/20 14:59 Patient is made NPO at this time. Patient was placed on Flagyl and Levaquin. Surgery has been consulted. Continue with IV fluids pain medication 02/21/20 15:07 patient is a 54-year-old female with history of ovarian cyst rupture in the past presented emergency department with complaint of epigastric pain nausea feverish and chills, patient had a CT scan of the abdomen there was a concerned that patient may have appendicitis as her white counts were elevated, patient was started on Flagyl and Levaquin, this morning patient states pain is much better denies any nausea or vomiting fever or chills her white counts are trending down, patient was seen by surgery team does not suspect appendicitis and started the patient on clear liquid and advanced as tolerated, patient states that her symptoms started after she ate Pizza night before arriving with c/o abdominal pain, nausea and vomiting, patient states nausea and diarrhea still persisting, most likely patient has a gastroenteritis, will continue to monitor with same regimen reassess tomorrow and further recommendation to follow (2) Ovarian cyst rupture: Onset Date: Unknown Code(s): N83.209 - Unspecified ovarian cyst, unspecified side Status: Acute Assessment and Plan: I did order the patient Toradol and Dilaudid. Patient has abdominal tenderness all over. (3) Chronic GERD: Onset Date: Unknown Code(s): K21.9 - Gastro-esophageal reflux disease without esophagitis Status: Chronic Assessment and Plan: Continue with the PPI. (4) HTN (hypertension): Onset Date: Unknown Code(s): I10 - Essential (primary) hypertension Status: Chronic Assessment and Plan: Patient is NPO at this time will do p.r.n. hydralazine. Her lisinopril is on hold. DS: Summary Hospital Course Reason for hospitalization: Archana Pérez is a 54 year old female who has had a past history of having ovarian cyst. She has since had a hysterectomy and has both of her ovaries at this time. The patient stated that she ate some pizza last night became ill. She had diffuse abdominal pain and nausea vomiting. The patient stated that her bowels have not moved because she has not eaten anything since then. And she has been vomiting. The patient did not have a fever chills. She has not had any sick contacts. She has not traveled out of the country. 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 She has no cough. CT of the abdomen was read as appendix contiguous to the right ovary, with some adjacent nonspecific fat stranding and also adjacent to the left ovary. Inflammation could be from recently ruptured cysts, but cannot exclude acute uncomplicated appendicitis. Dr. Barriga from surgery team was notified per ED provider and surgery team agreed to consult but requested that the hospitalist team admit the patient. I also requested a OBGYN be notified. ED provider noted that he did consult OBGYN. Patient was started on Flagyl and Levaquin as and given Dilaudid for discomfort. She was made NPO and given IV fluids. Date of service 02/20/2020 Hospital Course: 02/21/20 15:07 patient is a 54-year-old female with history of ovarian cyst rupture in the past presented emergency department with complaint of epigastric pain nausea feverish and chills, patient had a CT scan of the abdomen there was a concerned that patient may have appendicitis as her white counts were elevated, patient was started on Flagyl and Levaquin,
[2020-02-23 14:00] VITALS: BP 125/77; PULSE 84; RESP 18; TEMP 36.9; O2SAT 100
[2020-02-23] MEDS: metroNIDAZOLE 250 MG TABLET 500 MG PO (15:38)
--- NOTE | 2020-02-23 16:07 | PC.NURSE ---
GAVE MASK FOR TRAVEL HOME, SCRIPTS VERIFED AT [facility] GAVE TRUMPET TO HOME USE FOR ANY CONGESTION.
== END 2020-02-23 15:45 | disposition home or self-care (01) ==
LOC: ANHED 17:10 → ANH3MEDSUR 02-21 04:48
PROVIDERS: Nurse Practitioner; Surgery; Admitting Provider Family Medicine; Emergency Provider Emergency Medicine; PCP Internal Medicine; Visit Provider Family Medicine
DX: K35.80 Unspecified acute appendicitis (principal); N83.209 Unspecified ovarian cyst, unspecified side; K21.9 Gastro-esophageal reflux disease without esophagitis; K44.9 Diaphragmatic hernia without obstruction or gangrene; I10 Essential (primary) hypertension; Z87.891 Personal history of nicotine dependence; Z90.49 Acquired absence of other specified parts of digestive tract; Z90.710 Acquired absence of both cervix and uterus
CPT/HCPCS: 36415; 74177; 80053; 83690; 83735; 84443; 85014; 85018; 85025; 85027; 87015; 87045; 87046; 87269; 87272; 87427; 96361; 96365; 96366; 96367; 96375; 96376; 99285; A9270; C9113; G0378; G0379; J0131; J1170; J1885; J1956; J2405; J7030; J7120; Q9967

== ENCOUNTER 2020-11-25 15:22 | Emergency (ER) | payer OTHER, SELFPAY ==
[2020-11-25 15:29] VITALS: BP 157/95; PULSE 103; RESP 20; TEMP 36.7; O2SAT 100
[2020-11-25 15:34] VITALS: BP 157/95; PULSE 103; RESP 20; TEMP 36.7; O2SAT 100
[2020-11-25 15:50] LABS: Glucose Point of Care 91 (65-105)
--- NOTE | 2020-11-25 15:50 | ED.GENADULT ---
HPI - General Adult General Chief complaint: Urogenital-Female Stated complaint: back pain,dehydrated,frequent urination Time Seen by Provider: 11/25/20 15:50 Source: patient Mode of arrival: ambulatory Limitations: no limitations History of Present Illness HPI narrative: 55-year-old female patient presents to the [facility] with complaints of low back pain, weakness and chills as well as some urinary frequency that started for the past 2 days. Patient denies any fevers that she is aware of but states she just overall does not feel well. Denies any chest pain or shortness of breath. Denies any cough. Denies take anything for her symptoms since they started. Patient states she has increased her water intake. Patient states she has had a kidney infection before in the past and these symptoms are very similar. Denies coming into contact with anybody with Covid that she is aware of but does work as a hairdresser. Related Data Home Medications Medication Instructions Recorded Confirmed esomeprazole magnesium [Nexium 20 mg PO DAILY 02/20/20 11/25/20 24HR] lisinopril 10 mg PO DAILY 02/20/20 11/25/20 Allergies Allergy/AdvReac Type Severity Reaction Status Date / Time hazelnut Allergy Intermediate hives Verified 11/25/20 15:33 amoxicillin Allergy Unknown Unknown Verified 11/25/20 15:33 chlorpheniramine Allergy Unknown Unknown Verified 11/25/20 15:33 Penicillins Allergy Unknown Swelling Verified 11/25/20 15:33 phenylephrine Allergy Unknown Unknown Verified 11/25/20 15:33 phenylpropanolamine Allergy Unknown Unknown Verified 11/25/20 15:33 phenyltoloxamine Allergy Unknown Unknown Verified 11/25/20 15:33 pseudoephedrine Allergy Unknown Unknown Verified 11/25/20 15:33 Review of Systems Review of Systems: Narrative: CONSTITUTIONAL: Denies fever, positive chills, denies sweats. EYES: Denies visual changes, redness, or discharge. ENT: Denies rhinorrhea, congestion, sore throat, or otalgia. CARDIOVASCULAR: Denies chest pain, palpitations, or edema. RESPIRATORY: Denies cough or dyspnea. GASTROINTESTINAL: Denies abdominal pain, nausea, vomiting, or diarrhea. GENITOURINARY: Denies dysuria or hematuria. Positive urinary frequency SKIN: Denies rash or itching. MUSCULOSKELETAL: Positive low back pain, denies joint pain, or myalgia. NEUROLOGIC: Denies headache, numbness, positive weakness. PSYCHIATRIC: Denies anxiety or depression. [facility] Past Medical History Medical History (Updated 11/25/20 @ 15:58 by TRAMAINE Hinojosa) Chronic GERD (Unknown) Hiatal hernia HTN (hypertension) (Unknown) Surgical History Surgical History H/O sinus surgery History of hysterectomy History of open heart surgery as child History of tonsillectomy Hx of cholecystectomy Family History Family History Mother Hypertension Family history of diabetes mellitus in first degree relative Father Patient's father is in good health Patient had seen her father and several years the last time she saw him he was in good health. 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 She is a hairdresser. She desires to have her oldest son likes she also works doing [employer] with her [employer] and [facility] Smoking packs per day: 1 Smoking cigarettes per day: 20.0 Years smoked: 30 Smoking pack-years: 30.00 Smoking status: Former smoker Tobacco type: cigarettes Second hand tobacco smoke exposure: Yes Smoking end date: 12/27/15 Alcohol intake: current Drinks per week: 3 Substance use: never Gender identity (if verbalized by the patient): Female Spiritual care concerns: No Agree to blood products: Yes Exam Narrative: Exam Na
[2020-11-25 16:10] VITALS: BP 120/84
== END 2020-11-25 16:10 | disposition home or self-care (01) ==
PROVIDERS: Emergency Provider Nurse Practitioner Family; PCP Internal Medicine
DX: R35.0 Frequency of micturition (principal); R53.1 Weakness; Z20.828 Contact with and (suspected) exposure to other viral communicable diseases; Z87.891 Personal history of nicotine dependence; K21.9 Gastro-esophageal reflux disease without esophagitis; I10 Essential (primary) hypertension
CPT/HCPCS: 81003; 82948; 87086; 99213; G0463

== ENCOUNTER 2021-02-18 18:24 | Emergency (ER) | payer OTHER, SELFPAY ==
[2021-02-18 18:54] VITALS: BP 117/82; PULSE 94; RESP 16; TEMP 36.3; O2SAT 100
--- NOTE | 2021-02-18 20:04 | ED.SKABFB ---
HPI - Skin/Abscess/Foreign Bdy General Chief complaint: Skin/Abscess/Foreign Body Stated complaint: RASH- GOT COVID SHOT 2 DAYS AGO Time Seen by Provider: 02/18/21 19:20 Source: patient Mode of arrival: ambulatory Limitations: no limitations History of Present Illness HPI narrative: 55-year-old with a history of hypertension here with complaints of rash for past few days. Patient states that she developed a day after she got her second course of Covid vaccination. She states that she has been itching all over. However she denies any difficulty breathing. She also mentions that she has been needed taking Advil for fever which she developed on the second day after the vaccination. She states that she is intolerant to prednisone as she becomes psychotic even with minimal doses. complaint: rash Onset (ago): day(s) (2) Location: generalized Quality: pruritic Exacerbating factors: none Associated symptoms: denies other symptoms Related Data Home Medications Medication Instructions Recorded Confirmed esomeprazole magnesium [Nexium 20 mg PO DAILY 02/20/20 11/25/20 24HR] lisinopril 10 mg PO DAILY 02/20/20 11/25/20 Allergies Allergy/AdvReac Type Severity Reaction Status Date / Time hazelnut Allergy Intermediate hives Verified 02/18/21 19:21 amoxicillin Allergy Unknown Unknown Verified 02/18/21 19:21 chlorpheniramine Allergy Unknown Unknown Verified 02/18/21 19:21 Penicillins Allergy Unknown Swelling Verified 02/18/21 19:21 phenylephrine Allergy Unknown Unknown Verified 02/18/21 19:21 phenylpropanolamine Allergy Unknown Unknown Verified 02/18/21 19:21 phenyltoloxamine Allergy Unknown Unknown Verified 02/18/21 19:21 pseudoephedrine Allergy Unknown Unknown Verified 02/18/21 19:21 Review of Systems Review of Systems: All systems reviewed & are unremarkable except as noted in HPI and below Constitutional: Constitutional: Reports no additional constitutional complaints Eyes: Eyes: Reports no additional eye complaints ENT: Reports system reviewed and no additional complaints, except as documented Cardiovascular: Cardiovascular: Reports no additional cardiovascular complaints Respiratory: Respiratory: Reports no additional respiratory complaints Musculoskeletal: Musculoskeletal: Reports no additional musculoskeletal complaints Allergic/Immunologic: Allergic/Immunologic: Reports as per HPI [facility] Past Medical History Medical History Chronic GERD (Unknown) Hiatal hernia HTN (hypertension) (Unknown) Surgical History Surgical History H/O sinus surgery History of hysterectomy History of open heart surgery as child History of tonsillectomy Hx of cholecystectomy Family History Family History Mother Hypertension Family history of diabetes mellitus in first degree relative Father Patient's father is in good health Patient had seen her father and several years the last time she saw him he was in good health. 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
[2021-02-18 20:24] VITALS: BP 128/78; PULSE 90; RESP 16; O2SAT 98
== END 2021-02-18 20:25 | disposition home or self-care (01) ==
PROVIDERS: Emergency Provider Family Medicine; PCP Internal Medicine
DX: T78.40XA Allergy, unspecified, initial encounter (principal); K21.9 Gastro-esophageal reflux disease without esophagitis; I10 Essential (primary) hypertension; Z87.891 Personal history of nicotine dependence
CPT/HCPCS: 99283

== ENCOUNTER 2021-05-23 17:22 | Emergency (ER) | payer OTHER, SELFPAY ==
--- NOTE | ~2021-05-23 | XR_ITS ---
EXAMINATION: XR chest 2V EXAM DATE: 05/23/2021 18:10 INDICATION: Right-sided bronchi, abnormal auscultation. History of asthma. TECHNIQUE: Frontal and lateral projections of the chest obtained and reviewed. Comparison is made to prior examination from 04/22/2015. FINDINGS: Right basilar granuloma. The lungs are otherwise clear. There are no pleural effusions. T he cardiomediastinal silhouette is within normal limits. There is no pneumothorax suspected. The dain jordan and soft tissues are unremarkable. There are cholecystectomy clips. IMPRESSION: No acute cardiopulmonary findings. Reviewed, dictated and finalized at location A.
[2021-05-23 17:28] VITALS: BP 133/87; PULSE 96; RESP 12; TEMP 36.9; O2SAT 100
--- NOTE | 2021-05-23 17:52 | ED.EAR ---
HPI - Ear Problem General Chief complaint: Ear Stated complaint: ear pain Time Seen by Provider: 05/23/21 17:50 Source: patient Mode of arrival: ambulatory Limitations: no limitations History of Present Illness HPI Narrative: Archana Pérez is a 55 yo female with a PMH of HTN , GERD, comes to ER with pain in her right ear at the tragus.Is sore to touch. Mild drainage No trauma to site, no fever no nausea or vomiting. Has not been swimming. Quit smoking 7 years ago but still chews nicotine gum MD Complaint: ear pain Related Data Home Medications Medication Instructions Recorded Confirmed esomeprazole magnesium [Nexium 20 mg PO DAILY 02/20/20 05/23/21 24HR] lisinopril 10 mg PO DAILY 02/20/20 05/23/21 Allergies Allergy/AdvReac Type Severity Reaction Status Date / Time hazelnut Allergy Intermediate hives Verified 05/23/21 17:29 amoxicillin Allergy Unknown Unknown Verified 05/23/21 17:29 chlorpheniramine Allergy Unknown Unknown Verified 05/23/21 17:29 Penicillins Allergy Unknown Swelling Verified 05/23/21 17:29 phenylephrine Allergy Unknown Unknown Verified 05/23/21 17:29 phenylpropanolamine Allergy Unknown Unknown Verified 05/23/21 17:29 phenyltoloxamine Allergy Unknown Unknown Verified 05/23/21 17:29 pseudoephedrine Allergy Unknown Unknown Verified 05/23/21 17:29 levofloxacin [From Levaquin] Allergy Rash Verified 05/23/21 17:29 Review of Systems Review of Systems: Narrative: CONSTITUTIONAL: Denies fever, chills, sweats. EYES: Denies visual changes, redness, discharge. ENT: Denies rhinorrhea, congestion, sore throat, right ear tragus pain CARDIOVASCULAR: Denies chest pain, palpitations, edema. RESPIRATORY: Denies dyspnea, wheezing, cough GASTROINTESTINAL: Denies abdominal pain, nausea, vomiting, diarrhea. GENITOURINARY: Denies dysuria, hematuria, abnormal discharge SKIN: Denies rash or itching. NEUROLOGIC: Denies numbness, or focal weakness. PSYCHIATRIC: Denies anxiety or depression. [facility] Past Medical History Medical History (Updated 05/23/21 @ 18:15 by Cris Camarillo CNP) Chronic GERD (Unknown) Hiatal hernia HTN (hypertension) (Unknown) Surgical History Surgical History H/O sinus surgery History of hysterectomy History of open heart surgery as child History of tonsillectomy Hx of cholecystectomy Family History Family History Mother Hypertension Family history of diabetes mellitus in first degree relative Father Patient's father is in good health Patient had seen her father and several years the last time she saw him he was in good health. 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 There is no relevant family history pertinent to the presenting complaint. Exam Narrative: Exam Narrative: GENERAL: This is a well-nourished, well-developed patient, in mild distress. HEAD: normocephalic, atraumatic. EYES: Sclera clear/white. Vision is grossly intact. EARS: External ears normal, auditory canal clear on L, tender
== END 2021-05-23 18:33 | disposition home or self-care (01) ==
PROVIDERS: Emergency Provider Nurse Practitioner; PCP Internal Medicine
DX: H92.01 Otalgia, right ear (principal); K21.9 Gastro-esophageal reflux disease without esophagitis; I10 Essential (primary) hypertension
CPT/HCPCS: 71046; 99213; G0463

== ENCOUNTER 2021-05-30 10:10 | Outpatient (CLI) | payer OTHER, SELFPAY ==
--- NOTE | ~2021-05-30 | MM_ITS ---
EXAMINATION: MM screening clemente BI w berenice HISTORY: Screening mammogram TECHNIQUE: Craniocaudal and mediolateral oblique 3-D tomosynthesis images were obtained and synthetic 2-D images were generated. CAD analysis was submitted and interpreted. COMPARISON: 03/23/2019 diagnostic left digital mammogram 03/08/2019 bilateral digital screening mammogram BREAST PARENCHYMAL COMPOSITION: There are scattered areas of fibroglandular density. FINDINGS: There is no evidence of suspicious mass, calcification, or architectural distortion to sugg est malignancy in either breast. There has been no suspicious interval change. IMPRESSION: 1. No mammographic evidence of malignancy. 2. Recommend routine screening mammography in one year. BI-RADS Category 1: Negative Reviewed, dictated and finalized at location A.
== END 2021-05-30 10:11 | disposition home or self-care (01) ==
PROVIDERS: PCP Internal Medicine; Visit Provider Obstetrics & Gynecology
DX: Z12.31 Encounter for screening mammogram for malignant neoplasm of breast (principal)
CPT/HCPCS: 77063; 77067

== ENCOUNTER 2023-03-20 10:15 | Outpatient (RCR) | payer OTHER, SELFPAY ==
--- NOTE | 2023-02-27 13:45 | PTOPEVAL1 ---
Assessment and note entered by Anson Luevano, PT, DPT Evaluation Information Assessment Status Evaluation Diagnosis back pain Onset chronic Subjective Information Pt states she has intermittent back pain that is worse in the morning but it gets better throughout the date. She reports this as a stiffness. She states she has been to therapy before and does some exercises in the morning to try to help. She rates her pain as a 5/10 today and states she wore different shoes yesterday, normally by this time she is 1/10. Reported Pain Level Pain Score 5: Self Report Assessment PT Clinical Summary Archana presents to therapy today for her initial evaluation with a diagnosis of low back pain. Today she demonstrates decreased muscle length in her hamstring and her hip flexors yadiel. She demonstrates good LE strength but decreased core strength allowing for an anterior pelvic tilt in standing. She also has palpable muscle spasms with increase soft tissue density in her L thoracic paraspinals. Skilled physical therapy services are indicated to address the deficits noted above, to improve trunk ROM, to improve core strength, to manage pain, and to improve functional mobility and body awareness. Plan of Care Interventions Electrical Stimulation,Gait Training,Hot Pack/Cold Pack,Manual Therapy,Neuro Re-education,Patient/ Caregiver Educati,Therapeutic Activities, Therapeutic Exercise PT Services Indicated Yes Treatment Frequency and 2x/wk for 4 wks Duration These treatments will address the objective and functional deficits as defined above. The patient will be advanced safely and appropriately in order for the patient to progress towards his/her prior level of function. Additional exercises will be introduced and as well as a comprehensive home exercise program upon discharge, if needed, ?to ensure carryover of functional gains achieved in the clinic. This treatment plan has been reviewed and agreement upon by the patient.
--- NOTE | 2023-03-13 10:49 | PCPTNOTE ---
Pt cancelled her appt this morning having to go to work.
--- NOTE | 2023-03-24 11:29 | PCPTNOTE ---
Patient called to cancel this date due to stomach issues.
--- NOTE | 2023-03-26 13:55 | PTOPDC ---
Assessment and note entered by Anson Luevano, PT, DPT Evaluation Information Assessment Status Discharge - Pt Not Present Diagnosis back pain Onset chronic Subjective Information Pt called and cancelled her appointment today d/t having to work. She states she does not want to continue with therapy as she feels she is not getting better. She reports an increase in hip pain after completing therapy. Assessment PT Clinical Summary Archana completed 6 visits of skilled therapy from 02/27/23 to 03/20/23. She will be discharged at this time per her request. If she needs additional therapy at a later time she will need a new order .
== END 2023-03-26 14:05 | disposition home or self-care (01) ==
LOC: ANHGOSHPT 10:15
PROVIDERS: PCP Internal Medicine; Visit Provider Family Medicine
DX: M54.9 Dorsalgia, unspecified (principal)
CPT/HCPCS: 97110; 97112; 97140; 97161; 97530; 99199